=== PATIENT | male | born 2000 | race Caucasian/White ===

== ENCOUNTER 2022-04-18 11:58 | Emergency (ER) | payer OTHER ==
[~2022-04-18] VITALS: Ht 170.2 cm; Wt 116.3 kg
[2022-04-18] MEDS ORDERED: DOXY-443 PO (14:14)
[2022-04-18] MEDS ORDERED: DOXYCYCLINE HYCLATE 100MG TABLET PO ONE (14:15)
[2022-04-18 14:21] VITALS: BP 125/58
== END 2022-04-18 14:44 | disposition home or self-care (01) ==
LOC: M ED 11:58
DX: L73.9 Follicular disorder, unspecified (principal)